=== PATIENT | male | born 1995 | race American Indian/Alaskan Native ===

== ENCOUNTER → 2022-11-11 | Outpatient (CLI) | payer BC ==
[2022-11-11 15:36] LABS: Albumin 3.9 g/dL (3.4-5.0); Calcium 8.8 mg/dL (8.5-10.1)
[2022-11-11 15:38] LABS: BUN/Creatinine Ratio 13.1 (10.0-20.0)
[2022-11-11 15:41] LABS: Bilirubin, Total 0.7 mg/dL (0.2-1.0); Total Protein 8.1 g/dL (6.4-8.2)
[2022-11-12 08:06] LABS: RPR Non Reactive (Non Reactive)
== END | disposition home or self-care (01) ==
LOC: LAB 14:40
PROVIDERS: ATTEND Student in an Organized Health Care Education/Training Program
DX: Z72.52 High risk homosexual behavior (principal)
CPT/HCPCS: 36415; 80053; 86592; 86703

== ENCOUNTER → 2023-01-04 | Outpatient (CLI) | payer BC ==
[2023-01-04 14:01] LABS: Albumin 4.1 g/dL (3.4-5.0); Potassium 3.5 mmol/L (3.5-5.1)
[2023-01-04 14:14] LABS: Bilirubin, Total 1.1 mg/dL (0.2-1.0); Calcium 8.8 mg/dL (8.5-10.1); Total Protein 8.1 g/dL (6.4-8.2)
[2023-01-04 17:28] LABS: Hepatitis A Total Antibody Positive (Negative)
[2023-01-04 20:28] LABS: Hepatitis C Antibody Negative (Negative)
[2023-01-04 21:08] LABS: Hepatitis B Surface Antibody Positive (Negative)
[2023-01-05 07:06] LABS: RPR Non Reactive (Non Reactive)
== END | disposition home or self-care (01) ==
LOC: LAB 12:55
PROVIDERS: ATTEND Student in an Organized Health Care Education/Training Program
DX: Z79.899 Other long term (current) drug therapy (principal)
CPT/HCPCS: 36415; 80053; 80061; 86592; 86701; 86704; 86706; 86708; 86803; 87340

== ENCOUNTER → 2023-02-02 | Outpatient (CLI) | payer BC ==
[2023-02-03 06:07] LABS: RPR Non Reactive (Non Reactive)
== END | disposition home or self-care (01) ==
LOC: LAB 12:32
PROVIDERS: ATTEND Student in an Organized Health Care Education/Training Program
DX: Z11.4 Encounter for screening for human immunodeficiency virus [HIV] (principal); Z72.52 High risk homosexual behavior
CPT/HCPCS: 86592; 86703